=== PATIENT | male | born 1960 | race Caucasian/White ===

== ENCOUNTER 2020-07-03 12:31 | Emergency (ER) | payer BC ==
--- NOTE | 2020-07-03 13:24 | EDM.PDOC ---
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 The patient has been having episodes of palpitations and went to the school nurse who checked his blood pressure yesterday. She found his pressure to be 149/99. He again had palpitations today and went to the school nurse and she rechecked his blood pressure finding it of 151/101. She recommended he come into the ED for evaluation. Patient is symptom-free other than the palpitations which have subsided. Patient denies any chest pain, shortness of breath, nausea or vomiting, diaphoresis, lightheadedness or dizziness, vision changes, numbness or tingling, or weakness. He is on no medications. He rarely sees a doctor. - Related Data Allergies Allergy/AdvReac Type Severity Reaction Status Date / Time No Known Allergies Allergy Verified 07/03/20 13:23 Home Meds: Home Meds amLODIPine [Norvasc] 5 mg PO DAILY 30 Days #30 tab 07/03/20 [Rx] ED ROS GENERAL - Review of Systems Review Of Systems: See Below Constitutional: Reports: No Symptoms HEENT: Reports: No Symptoms Respiratory: Reports: No Symptoms Cardiovascular: Reports: Palpitations Endocrine: Reports: No Symptoms GI/Abdominal: Reports: No Symptoms : Reports: No Symptoms Musculoskeletal: Reports: Muscle Pain (By the right scapula with muscle spasm.) Skin: Reports: No Symptoms Neurological: Reports: No Symptoms Psychiatric: Reports: No Symptoms Hematologic/Lymphatic: Reports: No Symptoms Immunologic: Reports: No Symptoms ED EXAM, GENERAL - Physical Exam Exam: See Below Exam Limited By: No Limitations General Appearance: Alert, WD/WN, No Apparent Distress Eye Exam: Bilateral Eye: EOMI, PERRL Throat/Mouth: Normal Inspection, Normal Lips, Normal Teeth, Normal Gums, Normal Oropharynx, Normal Voice, No Airway Compromise Head: Atraumatic, Normocephalic Neck: Normal Inspection, Supple, Non-Tender, Full Range of Motion. No: Carotid Bruit Respiratory/Chest: No Respiratory Distress, Lungs Clear, Normal Breath Sounds, No Accessory Muscle Use, Chest Non-Tender Cardiovascular: Normal Peripheral Pulses, Regular Rate, Rhythm, No Edema, No Gallop, No JVD, No Murmur Peripheral Pulses: 2+: Radial (L), Radial (R) GI/Abdominal: Normal Bowel Sounds, Soft, Non-Tender, No Organomegaly, No Distention, No Abnormal Bruit, No Mass Back Exam: Normal Inspection, Full Range of Motion, NT Extremities: Normal Inspection, Normal Range of Motion, Non-Tender, Normal Capi llary Refill, No Pedal Edema Neurological: Alert, Oriented, CN II-XII Intact, Normal Cognition, Normal Gait, No Motor/Sensory Deficits Psychiatric: Normal Affect, Normal Mood Skin Exam: Warm, Dry, Intact, Normal Color, No Rash Lymphatic: No Adenopathy Course - Vital Signs Last Recorded V/S: Last Vital Signs Temp 36.4 C 07/03/20 13:22 Pulse 78 07/03/20 13:22 Resp 17 07/03/20 13:22 BP 147/98 H 07/03/20 13:22 Pulse Ox 100 07/03/20 13:22 - Orders/Labs/Meds Labs: Laboratory Tests 07/03/20 07/03/20 07/03/20 Range/Units 13:51 13:51 15:30 WBC 7.9 (4.5-11.0) K/uL RBC 4.55 (4.30-5.90) M/uL Hgb 13.3 (12.0-15.0) g/dL Hct 41.3 (40.0-54.0) % MCV 91 (80-98) fL MCH 29 (27-31) pg MCHC 32 (32-36) % Plt Count 222 (150-400) K/uL Sodium 136 L (140-148) mmol/L Potassium 4.1 (3.6-5.2) mmol/L Chloride 100 (100-108) mmol/L Carbon Dioxide 27 (21-32) mmol/L Anion Gap 13.1 (5.0-14.0) mmol/L BUN 13 (7-18) mg/dL Creatinine 0.8 (0.8-1.3) mg/dL Est Cr Clr Drug Dosing 91.81 mL/min Estimated GFR (MDRD) > 60 (>60) Glucose 97 (74-106) mg/dL Calcium 9.1 (8.5-10.1) mg/dL Magnesium 2.1 (1.8-2.4) mg/dL Troponin I < 0.017 (0.000-0.056) ng/mL Free T4 0.83 (0.76-1.46) ng/dL TSH, Ultra Sensitive 13.050 H (0.358-3.740) uIU/mL Departure - Departure Time of Disposition: 16:16 Disposition: Home, Self-Care 01 Condition: Good Clinical Impression: Sick-euthyroid syndrome Hypertension Qualifiers: Hypertension type: essential hypertension Qualified Code(s): I10 - Essential (primary) hypertension Prescriptions: amLODIPine [Norvasc] 5 mg PO DAILY 30 Days #30 tab Instructions: Hypertension, Adult, [id number], Preventing Hypertension Referrals: PCP,None [Primary Care Provider] - Forms: ED Department Discharge Care Plan Goals: I would like you to follow-up with your primary care provider in 1 month's time to recheck your thyroid. At this time, your thyroid is still functioning at a low level but within the normal limits. This is likely to decline over the next several months and require you to be on thyroid replacement therapy. We have initiated blood pressure medicine with amlodipine 5 mg daily. I would like you to also have your blood pressure rechecked in 1 month's time as this medication may need to be adjusted upward. Should you develop any symptoms of numbness, tingling, lightheadedness, vision changes, severe headache, or nausea and vomiting please return to the ED for reevaluation immediately. Sepsis Event Note (ED) - Focused Exam Vital Signs: Vital Signs Temp Pulse Resp BP Pulse Ox 07/03/20 13:22 36.4 C 78 17 147/98 H 100 07/03/20 13:21 36.4 C 78 17 147/98 H 100 - Problem List & Annotations (1) Hypertension SNOMED Code(s): 96363258 Code(s): I10 - ESSENTIAL (PRIMARY) HYPERTENSION Status: Acute Priority: High Current Visit: Yes Qualifiers: Hypertension type: essential hypertension Qualified Code(s): I10 - Essential (primary) hypertension (2) Sick-euthyroid syndrome SNOMED Code(s): 623127786 Code(s): E07.81 - SICK-EUTHYROID SYNDROME Status: Acute Priority: High Current Visit: Yes - Problem List Review Problem List Initiated/Reviewed/Updated: Yes - Assessment/Plan Plan: We have started blood pressure medicine with amlodipine 5 mg daily. I would like you to continue to monitor her blood pressure over the next several weeks. Follow-up with your primary care provider in 1 month's time for recheck of your thyroid function as well as your blood pressure as medications may need to be adjusted. At this time, there is no indication to start Synthroid to replace thyroid function.
== END 2020-07-03 16:35 | disposition home or self-care (01) ==
LOC: JP.ED 12:31
DX: I10 Essential (primary) hypertension (principal); E07.81 Sick-euthyroid syndrome; Z79.899 Other long term (current) drug therapy
CPT/HCPCS: 36415; 80048; 83735; 84439; 84443; 84484; 85027; 99284